=== PATIENT | female | born 1945 | race Caucasian/White ===

== ENCOUNTER 2018-01-02 18:03 | Inpatient (IN) | payer MEDICARE, OTHER ==
[~2018-01-02] VITALS: Ht 167.6 cm; Wt 50.9 kg
[~2018-01-02 18:03] MED LIST: ALBU90OI INH; AMIT25 PO; AMIT50 PO; ATOR10 PO; Aspir 8181 MG PO; CALCAVITD PO; CRUTCH3 USE; CYCL10 PO; DICL25ER PO; FISH1000 PO; HYDACE5 PO; HYDMOR2 PO; IBUP200 PO; IBUP600 PO; IBUP800 PO; IPRAOI INH; LIDO5TP TOP; LIDOCAINE5 GM TOP; LORA.5 PO; LORA10 PO; LOVA20 PO; META800 PO; MONT10T PO; MULVITMINF PO; Multiple Vitam1 EAC1 PO; NAPR500 PO; ONDA8ODT MM; OXYACE5T PO; OXYC10TA19 PO; OXYC1TAB11 PO; PREG100 PO; PROM25 PO; Percocet 10-321 EACH PO; Prilosec Otc20 MG PO; Pseudoephedrine30 MG PO; RXHYDACE PO; SIMV20 PO; SULTRIDS PO; VITAMIN D35000 UNIT PO
[2018-01-02 18:37] LABS: BASOPHILS ABSOLUTE AUTO 0.03 K/mm3 (0.00-0.23); BASOPHILS PERCENT AUTO 0 % (0-2); EOSINOPHILS ABSOLUTE AUTO 0.02 K/mm3 (0.00-0.68); EOSINOPHILS PERCENT AUTO 0 % (0-6); Hematocrit 35.2 % (33.0-51.0); Hemoglobin 10.7 g/dL (11.5-16.0); IMMATURE GRAN ABSOLUTE AUTO 0.02 K/mm3 (0.00-0.10); IMMATURE GRAN PERCENT AUTO 0 % (0-1); LYMPHOCYTES ABSOLUTE AUTO 0.71 K/mm3 (0.84-5.20); LYMPHOCYTES PERCENT AUTO 6 % (21-46); MONOCYTES ABSOLUTE AUTO 0.54 K/mm3 (0.16-1.47); MONOCYTES PERCENT AUTO 5 % (4-13); Mean Corpuscular HGB 25.7 pg (26.0-34.0); Mean Corpuscular HGB Conc 30.4 g/dL (31.5-36.5); Mean Corpuscular Volume 84 fL (80-100); Mean Platelet Volume 9.1 fL (9.1-12.4); NEUTROPHILS ABSOLUTE AUTO 10.77 K/mm3 (1.96-9.15); NEUTROPHILS PERCENT AUTO 89 % (41-73); Platelet Count 510 K/mm3 (150-400); RDW Coefficient Variation 16.9 % (11.7-14.2); Red Blood Cell Count 4.17 M/mm3 (3.80-5.20); White Blood Cell Count 12.09 K/mm3 (4.00-11.30)
[2018-01-02] MEDS ORDERED: PROM25 PO (18:46)
[2018-01-02 18:50] LABS: International Normalized Ratio 1.05; Prothrombin Time Results 10.9 Sec (9.7-11.5)
[2018-01-02 18:51] LABS: Alanine Aminotransfer (ALT/SGP 23 U/L (12-78); Albumin, Blood 2.9 g/dL (3.4-5.0); Albumin/Globulin Ratio 0.7 (0.8-1.8); Alk Phos 75 U/L (50-136); Anion Gap 8 mmol/L (6-16); Aspartate Aminotrans (AST/SGOT 32 U/L (12-37); Bilirubin, Total 0.3 mg/dL (0.1-1.0); Blood Urea Nitrogen 9 mg/dL (8-24); Bun/Creatinine Ratio 14.2 (12.0-20.0); CO2, Blood 26 mmol/L (21-32); Calcium, Blood 8.3 mg/dL (8.5-10.1); Chloride, Blood 105 mmol/L (98-108); Creatinine, Blood 0.64 mg/dL (0.40-1.00); Ethanol (Alcohol), Blood, Med <3 mg/dL; Globulin, Blood 4.4 g/dL (2.2-4.0); Glomerular Filtration Rate >60 (60-); Glucose, Blood 91 mg/dL (70-99); Sodium, Blood 139 mmol/L (136-145); Total Protein, Blood 7.3 g/dL (6.4-8.2)
[2018-01-02 19:37] LABS: U Amphetamine Screen Not Detected
[2018-01-02 19:38] LABS: U Barbituate Screen Not Detected; U Benzodiazapine Screen Not Detected; U Buprenorphine Screen Not Detected; U Cannabinoids Screen Not Detected; U Cocaine Screen Not Detected; U Methadone Screen Not Detected; U Methamphetamine Screen Not Detected; U Opiates Screen Not Detected; U Oxycodone Screen Not Detected; U Phencyclidine Screen Not Detected; U Propoxyphene Screen Not Detected
[2018-01-02 21:02] LABS: CPK Creatine Kinase 48 U/L (26-193)
[2018-01-02 22:48] LABS: Source, Urine Clean Catch
[2018-01-02 22:51] LABS: Bilirubin, Urine Neg (Neg); Blood, Urine 1+ (Neg); Glucose Qualitative, Urine Neg (Neg); Ketones, Urine Neg (Neg); Leukocyte Esterase, Urine 1+ (Neg); Nitrite, Urine Neg (Neg); Protein, Urine Neg (Neg); Urobilinogen, Urine NORM (Normal)
[2018-01-02 22:54] LABS: Appearance, Urine Clear (Clear); Color, Urine Amber (P-Yellow)
[2018-01-02 23:01] LABS: Bacteria Few /hpf; Red Blood Cells, Urine 0-2 /hpf (0-2); Squamous Epithelial Cells Mod /hpf (Few); White Blood Cells, Urine 0-2 /hpf (0-5)
[2018-01-02 23:12] LABS: Influenza A Negative (NEGATIVE); Influenza B Negative (NEGATIVE)
[2018-01-03 05:12] LABS: BASOPHILS ABSOLUTE AUTO 0.06 K/mm3 (0.00-0.23); BASOPHILS PERCENT AUTO 1 % (0-2); EOSINOPHILS ABSOLUTE AUTO 0.16 K/mm3 (0.00-0.68); EOSINOPHILS PERCENT AUTO 2 % (0-6); Hematocrit 30.9 % (33.0-51.0); Hemoglobin 9.6 g/dL (11.5-16.0); IMMATURE GRAN ABSOLUTE AUTO 0.03 K/mm3 (0.00-0.10); IMMATURE GRAN PERCENT AUTO 0 % (0-1); LYMPHOCYTES ABSOLUTE AUTO 2.19 K/mm3 (0.84-5.20); LYMPHOCYTES PERCENT AUTO 24 % (21-46); MONOCYTES ABSOLUTE AUTO 0.48 K/mm3 (0.16-1.47); MONOCYTES PERCENT AUTO 5 % (4-13); Mean Corpuscular HGB Conc 31.1 g/dL (31.5-36.5); Mean Corpuscular Volume 84 fL (80-100); Mean Platelet Volume 10.1 fL (9.1-12.4); NEUTROPHILS ABSOLUTE AUTO 6.41 K/mm3 (1.96-9.15); NEUTROPHILS PERCENT AUTO 69 % (41-73); Platelet Count 454 K/mm3 (150-400); RDW Coefficient Variation 16.9 % (11.7-14.2); RDW Standard Deviation 50.9 fL (35.1-46.3); Red Blood Cell Count 3.69 M/mm3 (3.80-5.20); White Blood Cell Count 9.33 K/mm3 (4.00-11.30)
[2018-01-03 05:43] LABS: Alanine Aminotransfer (ALT/SGP 18 U/L (12-78); Albumin, Blood 2.4 g/dL (3.4-5.0); Albumin/Globulin Ratio 0.6 (0.8-1.8); Alk Phos 64 U/L (50-136); Anion Gap 7 mmol/L (6-16); Aspartate Aminotrans (AST/SGOT 21 U/L (12-37); Bilirubin, Total 0.6 mg/dL (0.1-1.0); Blood Urea Nitrogen 6 mg/dL (8-24); Bun/Creatinine Ratio 9.9 (12.0-20.0); CO2, Blood 26 mmol/L (21-32); Calcium, Blood 7.9 mg/dL (8.5-10.1); Chloride, Blood 109 mmol/L (98-108); Creatinine, Blood 0.61 mg/dL (0.40-1.00); Globulin, Blood 3.8 g/dL (2.2-4.0); Glomerular Filtration Rate >60 (60-); Glucose, Blood 82 mg/dL (70-99); Potassium, Blood 4.1 mmol/L (3.5-5.5); Sodium, Blood 142 mmol/L (136-145); Total Protein, Blood 6.2 g/dL (6.4-8.2)
[2018-01-04] MEDS ORDERED: LEVFLO500 PO (09:55)
== END 2018-01-04 10:41 | disposition home or self-care (01) | DRG 689 ==
LOC: ER 18:03 → MEDS 20:49 → ENPENDDIS 01-04 09:00 → MEDS 01-04 10:41
PROVIDERS: Emergency Medicine; Internal Medicine
DX: N39.0 Urinary tract infection, site not specified (principal); G92 Toxic encephalopathy; E86.0 Dehydration; G89.29 Other chronic pain; M54.9 Dorsalgia, unspecified; F17.200 Nicotine dependence, unspecified, uncomplicated; Z88.0 Allergy status to penicillin; Z88.8 Allergy status to other drugs, medicaments and biological substances; Z79.82 Long term (current) use of aspirin; Z79.899 Other long term (current) drug therapy
CPT/HCPCS: 36415; 70450; 71046; 80053; 81001; 82550; 83605; 84145; 85025; 85610; 85730; 87040; 87077; 87086; 87186; 87804; 93005; 93010; 94640; 94760; 96360; 97116; 97161; 99285; G0480; G8978; G8979; J1650; J1956; J3010; J7030; P9612

== ENCOUNTER 2018-05-28 18:07 | Emergency (ER) | payer MEDICARE, OTHER ==
[~2018-05-28] VITALS: Ht 170.2 cm; Wt 54.4 kg
[~2018-05-28 18:07] MED LIST changes: +LEVFLO500 PO
== END 2018-05-28 19:57 | disposition home or self-care (01) ==
LOC: ER 18:07
DX: T14.8XXA Other injury of unspecified body region, initial encounter (principal); W19.XXXA Unspecified fall, initial encounter; Z88.0 Allergy status to penicillin; Z88.8 Allergy status to other drugs, medicaments and biological substances; Z79.899 Other long term (current) drug therapy; Z79.2 Long term (current) use of antibiotics; Z79.82 Long term (current) use of aspirin; Z79.891 Long term (current) use of opiate analgesic; E78.00 Pure hypercholesterolemia, unspecified; F17.200 Nicotine dependence, unspecified, uncomplicated
CPT/HCPCS: 73110; 73562-LT; 73610; 99284-25

== ENCOUNTER → 2023-09-12 | Outpatient (CLI) | payer MEDICARE, OTHER ==
[2023-09-12 13:07] LABS: BASOPHILS ABSOLUTE AUTO 0.12 K/mm3 (0.00-0.23); BASOPHILS PERCENT AUTO 2 % (0-2); EOSINOPHILS ABSOLUTE AUTO 0.32 K/mm3 (0.00-0.68); EOSINOPHILS PERCENT AUTO 5 % (0-6); Hematocrit 37.3 % (33.0-51.0); Hemoglobin 11.8 g/dL (11.5-16.0); IMMATURE GRAN ABSOLUTE AUTO 0.01 K/mm3 (0.00-0.10); IMMATURE GRAN PERCENT AUTO 0 % (0-1); LYMPHOCYTES ABSOLUTE AUTO 1.83 K/mm3 (0.84-5.20); LYMPHOCYTES PERCENT AUTO 30 % (21-46); MONOCYTES ABSOLUTE AUTO 0.52 K/mm3 (0.16-1.47); MONOCYTES PERCENT AUTO 9 % (4-13); Mean Corpuscular HGB 27.3 pg (26.0-34.0); Mean Corpuscular HGB Conc 31.6 g/dL (31.5-36.5); Mean Corpuscular Volume 86 fL (80-100); NEUTROPHILS ABSOLUTE AUTO 3.33 K/mm3 (1.96-9.15); NEUTROPHILS PERCENT AUTO 54 % (41-73); Platelet Count 324 K/mm3 (150-400); RDW Coefficient Variation 15.1 % (11.7-14.2); RDW Standard Deviation 48.6 fL (35.1-46.3); Red Blood Cell Count 4.32 M/mm3 (3.80-5.20); White Blood Cell Count 6.13 K/mm3 (4.00-11.30)
[2023-09-12 14:13] LABS: Very Low Density Lipoprot Chol 18 mg/dL (6-32)
[2023-09-12 14:15] LABS: Alanine Aminotransfer (ALT/SGP 24 U/L (12-78); Albumin, Blood 3.8 g/dL (3.4-5.0); Albumin/Globulin Ratio 1.4 (0.8-1.8); Alk Phos 51 U/L (50-136); Anion Gap 6 mmol/L (6-16); Aspartate Aminotrans (AST/SGOT 21 U/L (12-37); Bilirubin, Total 0.4 mg/dL (0.1-1.0); Blood Urea Nitrogen 12 mg/dL (8-24); Bun/Creatinine Ratio 17.4 (12.0-20.0); CHOL/HDL RATIO 3.4; CO2, Blood 30 mmol/L (21-32); Calcium, Blood 8.5 mg/dL (8.5-10.1); Chloride, Blood 102 mmol/L (98-108); Cholesterol 224 mg/dL (50-200); Creatinine, Blood 0.69 mg/dL (0.40-1.00); Globulin, Blood 2.8 g/dL (2.2-4.0); Glomerular Filtration Rate 90 (60-); Glucose, Blood 99 mg/dL (70-99); HDL Cholesterol 65 mg/dL (>39); LDL/HDL RATIO 2.2; Low Density Lipoprotein Chol 141 mg/dL (0-110); Potassium, Blood 3.8 mmol/L (3.5-5.5); Sodium, Blood 138 mmol/L (136-145); Total Protein, Blood 6.6 g/dL (6.4-8.2); Triglycerides 91 mg/dL (30-160)
== END ==
LOC: LAB SHORT 11:09 → LAB 11:09
PROVIDERS: Family Medicine
DX: I10 Essential (primary) hypertension (principal)
CPT/HCPCS: 80053; 80061; 85025

== ENCOUNTER 2024-11-23 23:57 | Observation (INO) | payer MEDICARE, OTHER ==
[~2024-11-23] VITALS: Ht 162.6 cm; Wt 54.4 kg
[~2024-11-23 23:57] MED LIST changes: -CALCAVITD PO; +CALCIUM 500-VI1 EAC4 PO
[2024-11-24] MEDS ORDERED: NS 1,000 ML IV SCH (00:30)
[2024-11-24] MEDS ORDERED: Magnesium Sulf 2 GM/Water 50ML 50 ML IV ONE (00:35)
[2024-11-24 00:41] LABS: BASOPHILS ABSOLUTE AUTO 0.09 K/mm3 (0.00-0.23); BASOPHILS PERCENT AUTO 2 % (0-2); EOSINOPHILS ABSOLUTE AUTO 0.24 K/mm3 (0.00-0.68); EOSINOPHILS PERCENT AUTO 4 % (0-6); Hematocrit 34.6 % (33.0-51.0); Hemoglobin 10.8 g/dL (11.5-16.0); IMMATURE GRAN ABSOLUTE AUTO 0.01 K/mm3 (0.00-0.10); IMMATURE GRAN PERCENT AUTO 0 % (0-1); LYMPHOCYTES ABSOLUTE AUTO 1.61 K/mm3 (0.84-5.20); LYMPHOCYTES PERCENT AUTO 26 % (21-46); MONOCYTES ABSOLUTE AUTO 0.52 K/mm3 (0.16-1.47); MONOCYTES PERCENT AUTO 8 % (4-13); Mean Corpuscular HGB 28.1 pg (26.0-34.0); Mean Corpuscular HGB Conc 31.2 g/dL (31.5-36.5); Mean Corpuscular Volume 90 fL (80-100); Mean Platelet Volume 11.2 fL (9.1-12.4); NEUTROPHILS ABSOLUTE AUTO 3.72 K/mm3 (1.96-9.15); NEUTROPHILS PERCENT AUTO 60 % (41-73); Platelet Count 252 K/mm3 (150-400); RDW Standard Deviation 46.7 fL (35.1-46.3); Red Blood Cell Count 3.84 M/mm3 (3.80-5.20); White Blood Cell Count 6.19 K/mm3 (4.00-11.30)
[2024-11-24 00:49] LABS: Source, Urine Clean Catch
[2024-11-24 00:56] LABS: Bilirubin, Urine Neg (Neg); Blood, Urine Neg (Neg); Glucose Qualitative, Urine Neg (Neg); Ketones, Urine Neg (Neg); Leukocyte Esterase, Urine 2+ (Neg); Nitrite, Urine Neg (Neg); Protein, Urine Neg (Neg); Urobilinogen, Urine NORM (Normal); pH, Urine 6.5 (5.0-8.0)
[2024-11-24] MEDS ORDERED: CefTRIAXone Sodium 1,000 MG in NS 50 ML IV ONE (01:05)
[2024-11-24] MEDS ORDERED: Midazolam HCl 1MG / ML 2ML Vial IV ONE (01:05)
[2024-11-24 01:09] LABS: Acetaminophen, Random <2.0 ug/mL (10.0-30.0); Alanine Aminotransfer (ALT/SGP 14 U/L (12-78); Albumin, Blood 3.8 g/dL (3.4-5.0); Albumin/Globulin Ratio 1.3 (0.8-1.8); Alk Phos 60 U/L (50-136); Anion Gap 10 mmol/L (3-11); Aspartate Aminotrans (AST/SGOT 20 U/L (12-37); Bilirubin, Total 0.5 mg/dL (0.1-1.0); Blood Urea Nitrogen 11 mg/dL (8-24); Bun/Creatinine Ratio 15.5 (12.0-20.0); CO2, Blood 27 mmol/L (21-32); Calcium, Blood 8.9 mg/dL (8.5-10.1); Chloride, Blood 108 mmol/L (98-108); Creatinine, Blood 0.71 mg/dL (0.40-1.00); Ethanol (Alcohol), Blood, Med <3 mg/dL; Glomerular Filtration Rate 88 (60-); Glucose, Blood 102 mg/dL (70-99); Magnesium, Blood 2.3 mg/dL (1.6-2.4); Potassium, Blood 3.4 mmol/L (3.5-5.5); Salicylate 5.6 mg/dL (2.8-20.0); Sodium, Blood 142 mmol/L (136-145); Total Protein, Blood 6.8 g/dL (6.4-8.2); Uric Acid, Blood 3.2 mg/dL (2.6-6.0)
[2024-11-24 01:12] LABS: U Amphetamine Screen Not Detected; U Barbituate Screen Not Detected; U Benzodiazapine Screen Not Detected; U Buprenorphine Screen Not Detected; U Cannabinoids Screen Not Detected; U Cocaine Screen Not Detected; U Methadone Screen Not Detected; U Methamphetamine Screen Not Detected; U Opiates Screen Not Detected; U Oxycodone Screen Not Detected; U Phencyclidine Screen Not Detected
[2024-11-24 01:13] LABS: Base Excess Venous 3.7 mmol/L; Bicarbonate Venous 26.7 mmol/L (24.0-30.0); PCO2 Venous 53.4 mmHg (38-42); pH Blood Venous 7.35 (7.34-7.37)
[2024-11-24 01:16] LABS: Appearance, Urine Clear (Clear); Color, Urine Pale Yellow (P-Yellow)
[2024-11-24 01:17] LABS: Bacteria Mod /hpf; Red Blood Cells, Urine 0-2 /hpf (0-2); Squamous Epithelial Cells Mod /hpf (Few)
[2024-11-24] MEDS ORDERED: FLU VACC TS2024-25(6MOS UP)/PF 45 MCG/0.5 ML SYRINGE IM ONE (02:40)
[2024-11-24] MEDS ORDERED: Lactated Ringer's 1,000 ML IV SCH (03:00)
[2024-11-24 06:03] LABS: BASOPHILS ABSOLUTE AUTO 0.11 K/mm3 (0.00-0.23); BASOPHILS PERCENT AUTO 1 % (0-2); EOSINOPHILS ABSOLUTE AUTO 0.26 K/mm3 (0.00-0.68); EOSINOPHILS PERCENT AUTO 2 % (0-6); Hematocrit 37.4 % (33.0-51.0); Hemoglobin 11.7 g/dL (11.5-16.0); IMMATURE GRAN ABSOLUTE AUTO 0.03 K/mm3 (0.00-0.10); IMMATURE GRAN PERCENT AUTO 0 % (0-1); LYMPHOCYTES PERCENT AUTO 10 % (21-46); MONOCYTES ABSOLUTE AUTO 0.67 K/mm3 (0.16-1.47); MONOCYTES PERCENT AUTO 6 % (4-13); Mean Corpuscular HGB 28.1 pg (26.0-34.0); Mean Corpuscular HGB Conc 31.3 g/dL (31.5-36.5); Mean Corpuscular Volume 90 fL (80-100); Mean Platelet Volume 11.1 fL (9.1-12.4); NEUTROPHILS ABSOLUTE AUTO 9.39 K/mm3 (1.96-9.15); NEUTROPHILS PERCENT AUTO 81 % (41-73); Platelet Count 263 K/mm3 (150-400); RDW Standard Deviation 45.9 fL (35.1-46.3); Red Blood Cell Count 4.17 M/mm3 (3.80-5.20); White Blood Cell Count 11.66 K/mm3 (4.00-11.30)
[2024-11-24 06:47] LABS: Albumin, Blood 3.5 g/dL (3.4-5.0); Albumin/Globulin Ratio 1.2 (0.8-1.8); Bilirubin, Total 0.5 mg/dL (0.1-1.0); Bun/Creatinine Ratio 12.5 (12.0-20.0); Calcium, Blood 8.4 mg/dL (8.5-10.1); Creatinine, Blood 0.64 mg/dL (0.40-1.00); Potassium, Blood 3.4 mmol/L (3.5-5.5); Total Protein, Blood 6.5 g/dL (6.4-8.2)
[2024-11-24] MEDS ORDERED: Potassium Chloride 20 MEQ in NS 90 ML IV ONE (07:40)
[2024-11-24 08:10] LABS: Base Excess Venous 3.9 mmol/L; Bicarbonate Venous 27.4 mmol/L (24.0-30.0); PCO2 Venous 44.5 mmHg (38-42); pH Blood Venous 7.42 (7.34-7.37)
[2024-11-24] MEDS ORDERED: Lactobacil 2-S.Thermo-Bifido 1 1 Cap PO SCH (09:00)
[2024-11-24] MEDS ORDERED: Enoxaparin 40 MG/0.4 ML SYR SC SCH (09:00)
[2024-11-24] MEDS ORDERED: NS 250 ML IV PRN (10:55)
[2024-11-24 11:01] VITALS: BP 176/96
[2024-11-24] MEDS ORDERED: OxyCODONE 5 mg/Acetamin 325 mg TABLET PO PRN (11:40)
[2024-11-24] MEDS ORDERED: Ipratropium Bromide INH 0.02% 0.5 mg/2.5ML Vial INH SCH (11:55)
[2024-11-24] MEDS ORDERED: Albuterol HFA200 ACT/6.7 GM INH INH PRN (11:55)
[2024-11-24] MEDS ORDERED: AmLODIPine Besylate 5 MG Tab PO PRN (12:25)
[2024-11-24] MEDS ORDERED: AmLODIPine Besylate 5 MG Tab PO SCH ×2 (13:00→21:00)
[2024-11-24 13:06] VITALS: BP 170/84
--- NOTE | 2024-11-24 14:56 | NUR ---
MD CALL MS JASON IS ANXIOUS, REQUESTING TO GO HOME, REQUESTED CORDERO TO BE REMOVED WHICH IT WAS, SHE IS ATTEMPTING TO GET UP OUT OF BED INTERMITTANTLY. DR OVERTON NOTIFIED. SHE IS PLACING NEW MED ORDER.
[2024-11-24] MEDS ORDERED: HydrOXYzine Pamoate 25 MG Cap PO PRN (15:00)
--- NOTE | 2024-11-24 15:16 | NUR ---
ADMIT/SHIFT NOTE MS JASON WAS ADMITTED TO MEDICAL UNIT FROM ER AT 1045AM. TRANSFERED VIA STRETCHER. SHE IS ABLE TO TELL ME HER NAME, THAT SHE'S IN THE HOSPITAL BECAUSE OF A FALL AND THAT IT'S 2024. SHE IS CONFUSED, FORGETFUL, FREQUENTLY WANTING TO GET UP OUT OF BED. BED ALARM ON, CALL LIGHT IN REACH, BED LOW, PT EDUCATED ON FALL PRECAUTIONS AND CALL LIGHT. VISTARIL GIVEN FOR ANXIETY. GIVEN PERCOCET FOR CHRONIC BACK AND R SHOULDER PAIN. CORDERO CATHETER REMOVED PER PT REQUEST. SHE IS STILL RECEIVING IVF (REMAINDER OF THIS BAG). SHE STARTED ON MINCED AND MOIST DIET FOR LUNCH AND ATE WELL, DRINKING WELL. BP ELEVATED ON ARRIVAL; MEDICATED. WILL REASSESS. PT'S DAUGHTER IS COMING IN AND BRINGING MEDICATIONS FOR MED RECONCILIATION. PT LIVES WITH HER DAUGHTER AND PER PT REPORT IS NORMALLY INDEPENDENT. SHE NORMALLY WEARS DENTURES AND GLASSESS WHICH ARE NOT WITH HER ON ADMISSION.
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
[2024-11-24 15:54] VITALS: BP 170/83
[2024-11-24] MEDS ORDERED: FentaNYL Citrate 50 MCG/ML 2 ML Injection IV PRN (16:30)
--- NOTE | 2024-11-24 16:31 | NUR ---
MD CALL BLOOD PRESSURE REMAINS HIGH [address] HRS AFTER [facility] PO. DR OVERTON NOTIFOED AND PUTTING IN NEW ORDERS. VERIFIED WITH ARACELI, DAUGHTER THAT SHE IS COMING IN WITH MEDICATIONS/GLASSES/DENTURES.
[2024-11-24] MEDS ORDERED: HydrALAZINE HCl 10 MG Tab PO PRN (16:35)
[2024-11-24] MEDS ORDERED: QUEtiapine Fumarate 25 MG Tab PO PRN (17:15)
--- NOTE | 2024-11-24 18:22 | NUR ---
RN NOTE MS JASON HAS INCREASED IN AGITATION, FREQUENTLY GETTING OOB, VOICE RAISED, SWEAR WORDS TOWARDS STAFF. COLE RESTRAINT APPLIED. PT LEANED OVER BED AND UNDID COLE RESTRAIN AND GOT OUT OF BED. CHANGED TO SOFT WRIST RESTRAINTS, PT PULLING AGAINST SOFT RESTRAINTS. VERBAL AGREEMENT WITH PT. SEROQUIL GIVEN. PT CONTINUES TO BE CONFUSED AND TO PULL AGAINST RESTRAINTS. SITTER REQUESTED AND AWAITING MOVE TO ROOM WITH SITTER AVAILABLE. DAUGHTER ARACELI CAME IN TO THE HOSPITAL AND VERBALISED AGREEMENT WITH NEED FOR RESTRAINT MANAGEMENT. SHE LEFT BEFORE MED REC COULD BE DONE. SHE DID NOT LEAVE GLASSES OR DENTURES. DR OVERTON KEPT INFORMED OF STATUS OF PATIENT.
[2024-11-24 20:10] VITALS: BP 143/79
[2024-11-24] MEDS ORDERED: CefTRIAXone Sodium 1,000 MG in NS 100 ML IV SCH (21:00)
[2024-11-24] MEDS ORDERED: Amitriptyline HCl 50 MG Tab PO SCH (21:00)
[2024-11-25 03:49] VITALS: BP 140/73
[2024-11-25 05:18] LABS: Base Excess Venous 5.3 mmol/L; Bicarbonate Venous 28.8 mmol/L (24.0-30.0); PCO2 Venous 40.5 mmHg (38-42); pH Blood Venous 7.46 (7.34-7.37)
[2024-11-25 05:33] LABS: BASOPHILS ABSOLUTE AUTO 0.08 K/mm3 (0.00-0.23); BASOPHILS PERCENT AUTO 1 % (0-2); EOSINOPHILS ABSOLUTE AUTO 0.14 K/mm3 (0.00-0.68); EOSINOPHILS PERCENT AUTO 2 % (0-6); Hematocrit 34.7 % (33.0-51.0); Hemoglobin 10.9 g/dL (11.5-16.0); IMMATURE GRAN ABSOLUTE AUTO 0.01 K/mm3 (0.00-0.10); IMMATURE GRAN PERCENT AUTO 0 % (0-1); LYMPHOCYTES ABSOLUTE AUTO 1.17 K/mm3 (0.84-5.20); LYMPHOCYTES PERCENT AUTO 18 % (21-46); MONOCYTES PERCENT AUTO 8 % (4-13); Mean Corpuscular HGB Conc 31.4 g/dL (31.5-36.5); Mean Corpuscular Volume 89 fL (80-100); Mean Platelet Volume 10.9 fL (9.1-12.4); NEUTROPHILS ABSOLUTE AUTO 4.55 K/mm3 (1.96-9.15); NEUTROPHILS PERCENT AUTO 71 % (41-73); Platelet Count 248 K/mm3 (150-400); RDW Standard Deviation 45.5 fL (35.1-46.3); Red Blood Cell Count 3.89 M/mm3 (3.80-5.20); White Blood Cell Count 6.45 K/mm3 (4.00-11.30)
[2024-11-25 07:17] VITALS: BP 151/85
[2024-11-25 08:53] LABS: Bun/Creatinine Ratio 11.8 (12.0-20.0); Calcium, Blood 8.6 mg/dL (8.5-10.1); Creatinine, Blood 0.68 mg/dL (0.40-1.00)
[2024-11-25] MEDS ORDERED: Cholecalciferol 1000 Unit Tablet (=25MCG) PO SCH (09:00)
[2024-11-25] MEDS ORDERED: Calcium/Vit D 600 mg-400 Unit Tab PO SCH (09:00)
[2024-11-25] MEDS ORDERED: Aspirin 81 MG TabEC PO SCH (09:00)
[2024-11-25] MEDS ORDERED: Multivitamins/Minerals TAB PO SCH (09:00)
[2024-11-25 16:00] VITALS: BP 135/73
--- NOTE | 2024-11-25 18:43 | NUR ---
assumed care of pt, vss pt doing very well and is a/o x4 no signsof confusion no distress sitter at bedside. pt aware she needs to call if wanting to exit bed and has verbalized understanding.
--- NOTE | 2024-11-25 18:44 | NUR ---
PT/OT worked with pt and have cleared her for supervised transferes so sitter has been dced.
--- NOTE | 2024-11-25 18:46 | NUR ---
pt [id number] to get out of bed without calling but was reminded to use call light. next time pt wanted to exit bed she called and waited for assistence. pt up in chair feeding self, mentation becoming better this evening.
[2024-11-25 19:17] VITALS: BP 140/78
[2024-11-25] MEDS ORDERED: Ipratropium Bromide INH 0.02% 0.5 mg/2.5ML Vial INH SCH (23:39)
[2024-11-26 01:59] VITALS: BP 124/68
--- NOTE | 2024-11-26 06:41 | NUR ---
SHIFT SUMMARY PT ALERT AND ORIENTED TIMES 3. SINCE TRANSFER PT HAS BEEN COOPERATIVE AND RECEPTIVE TO CARE. SITTER ORDER HAS BEEN DC D. PT ABLE TO MAKE NEEDS KNOWN TO STAFF AND COOPERATIVE WITH CARE. PT APPEARED TO SLEEP THROUGH THE NIGHT. BED IN LOW POSITION, CALL LIGHT WITHIN REACH, RAILS TIMES 2.
[2024-11-26 07:32] VITALS: BP 152/94
[2024-11-26] MEDS ORDERED: Ipratropium Bromide INH 0.02% 0.5 mg/2.5ML Vial INH PRN (07:40)
[2024-11-26] MEDS ORDERED: OXYCODONE-ACET1 EAC3 PO (12:53)
[2024-11-26] MEDS ORDERED: VITAMIN D31000 UNI1 PO (13:04)
== END 2024-11-26 15:13 | disposition home health service (06) ==
LOC: ER 23:57 → MEDS 23:58 → ERHOLD 23:58 → MEDS 11-24 10:46 → ENPENDDIS 11-26 11:11 → MEDS 11-26 15:13
PROVIDERS: Emergency Medicine; Internal Medicine; ADMIT Student in an Organized Health Care Education/Training Program
DX: G92.8 Other toxic encephalopathy (principal); E87.6 Hypokalemia; J96.92 Respiratory failure, unspecified with hypercapnia; S22.42XA Multiple fractures of ribs, left side, initial encounter for closed fracture; W19.XXXA Unspecified fall, initial encounter; M81.0 Age-related osteoporosis without current pathological fracture; G89.29 Other chronic pain; M54.9 Dorsalgia, unspecified; Z66 Do not resuscitate; I10 Essential (primary) hypertension; J43.9 Emphysema, unspecified; F17.210 Nicotine dependence, cigarettes, uncomplicated; Z88.0 Allergy status to penicillin; Z88.8 Allergy status to other drugs, medicaments and biological substances; Z79.82 Long term (current) use of aspirin; Z79.899 Other long term (current) drug therapy
CPT/HCPCS: 36415; 51702; 70450; 71045; 72125; 72170; 80048; 80053; 80320; 81001; 82140; 82550; 82803; 83605; 83735; 84100; 84443; 84550; 85025; 87040; 87086; 93005; 93010; 94640; 94664; 94760; 96361-59; 96365-59; 96366; 96367; 96372; 96372-59; 96375-59; 96376; 96376-59; 97161; 97165; 97530; 99285-25; A9270; G0378; G0480; J0696; J1650; J2250; J3475; J3480; J7030; J7120; Q0177

== ENCOUNTER → 2025-07-07 | Outpatient (CLI) | payer MEDICARE, OTHER ==
[~2025-07-07] MED LIST changes: +OXYCODONE-ACET1 EAC3 PO; +VITAMIN D31000 UNI1 PO
[2025-07-07 17:36] LABS: BASOPHILS ABSOLUTE AUTO 0.19 K/mm3 (0.00-0.23); BASOPHILS PERCENT AUTO 3 % (0-2); EOSINOPHILS ABSOLUTE AUTO 0.32 K/mm3 (0.00-0.68); EOSINOPHILS PERCENT AUTO 4 % (0-6); Hematocrit 35.3 % (33.0-51.0); Hemoglobin 11.2 g/dL (11.5-16.0); IMMATURE GRAN ABSOLUTE AUTO 0.02 K/mm3 (0.00-0.10); IMMATURE GRAN PERCENT AUTO 0 % (0-1); LYMPHOCYTES ABSOLUTE AUTO 1.96 K/mm3 (0.84-5.20); LYMPHOCYTES PERCENT AUTO 26 % (21-46); MONOCYTES ABSOLUTE AUTO 0.64 K/mm3 (0.16-1.47); MONOCYTES PERCENT AUTO 9 % (4-13); Mean Corpuscular HGB Conc 31.7 g/dL (31.5-36.5); Mean Corpuscular Volume 95 fL (80-100); NEUTROPHILS ABSOLUTE AUTO 4.35 K/mm3 (1.96-9.15); NEUTROPHILS PERCENT AUTO 58 % (41-73); NRBC ABSOLUTE 0.00 K/mm3 (0.00-0.02); NRBC Auto 0.0 /100 WBC (0.0-0.2); Platelet Count 433 K/mm3 (150-400); RDW Coefficient Variation 13.3 % (11.7-14.2); RDW Standard Deviation 46.4 fL (35.1-46.3)
[2025-07-07 17:47] LABS: Alanine Aminotransfer (ALT/SGP 25.0 U/L (12-78); Albumin, Blood 3.7 g/dL (3.4-5.0); Albumin/Globulin Ratio 1.1 (0.8-1.8); Anion Gap 5.0 mmol/L (3-11); Aspartate Aminotrans (AST/SGOT 32.0 U/L (12-37); Bilirubin, Total 0.3 mg/dL (0.1-1.0); Blood Urea Nitrogen 11.0 mg/dL (8-24); CO2, Blood 34.0 mmol/L (21-32); Calcium, Blood 9.4 mg/dL (8.5-10.1); Chloride, Blood 99.0 mmol/L (98-108); Creatinine, Blood 0.79 mg/dL (0.40-1.00); Globulin, Blood 3.5 g/dL (2.2-4.0); Glucose, Blood 95.0 mg/dL (70-99); Potassium, Blood 3.0 mmol/L (3.5-5.5); Prealbumin, Blood 32.5 mg/dL (20.0-40.0); Sodium, Blood 135.0 mmol/L (136-145); Thyroid Stimulating Hormone 1.61 uIU/mL (0.360-4.800); Total Protein, Blood 7.2 g/dL (6.4-8.2)
== END | disposition home or self-care (01) ==
LOC: LAB SHORT 15:31 → LAB 15:31
PROVIDERS: Family Medicine
DX: T73.3XXA Exhaustion due to excessive exertion, initial encounter (principal); R63.4 Abnormal weight loss
CPT/HCPCS: 80053; 84134; 84443; 85025